=== PATIENT | male | born 1935 | race Caucasian/White ===

== ENCOUNTER 2020-09-08 13:03 | Emergency (ER) | payer MEDICARE ==
[~2020-09-08] VITALS: Ht 177.8 cm; Wt 79.1 kg
[~2020-09-08 13:03] MED LIST: AMOX-422 PO; ATOR20TA66 PO; CARV25TA PO; HYDR-4383 PO; LOSA50TA3 PO
[2020-09-08 13:14] VITALS: BP 188/99
[2020-09-08] MEDS ORDERED: LIDOcaine 2% 10ml TOPICAL JELLY (Urojet) TP ONE (14:20)
[2020-09-08 14:52] LABS: CLARITY,URINE SLIGHTLY CLOUDY (Clear); COLOR,URINE YELLOW (Yellow); GLUCOSE, URINE NEGATIVE (Neg); KETONES,URINE NEGATIVE (Neg); LEUKOCYTE ESTERASE ,URINE NEGATIVE (Neg); NITRITES, URINE NEGATIVE (Neg); OCCULT BLOOD,URINE LARGE (Neg); PROTEIN,URINE NEGATIVE (Neg); UROBILINOGEN,URINE 0.2 E.U/dL (0.2-1.0)
[2020-09-08 14:54] LABS: UA COLLECTION TYPE FOLEY CATH
[2020-09-08 15:03] LABS: BACTERIA,URINE FEW /HPF (Neg); RBC,URINE 50-100 /HPF (0-2); SQUAMOUS EPITHELIAL CELL,UR FEW /LPF (FEW); WBC,URINE 0-4 /HPF (0-4)
--- NOTE | 2020-09-08 15:26 | NUR ---
Pt states bladder relief after f/c insertion. Denies any pain at this time.
== END 2020-09-08 15:27 | disposition home or self-care (01) ==
LOC: ER 13:04
DX: R33.9 Retention of urine, unspecified (principal); I48.91 Unspecified atrial fibrillation; I10 Essential (primary) hypertension; Z98.890 Other specified postprocedural states; Z88.2 Allergy status to sulfonamides; Z79.899 Other long term (current) drug therapy
CPT/HCPCS: 51702; 81001; 99284

== ENCOUNTER 2021-10-04 22:27 | Inpatient (IN) | payer MEDICARE ==
[~2021-10-04] VITALS: Ht 177.8 cm; Wt 78.8 kg
[~2021-10-04 22:27] MED LIST changes: -AMOX-422 PO
[2021-10-04 23:06] LABS: BASOPHILS # (AUTO) 0.1 X10'3 (0-0.2); BASOPHILS % (AUTO) 1.3 % (0-1); EOSINOPHILS # (AUTO) 0.2 X10'3 (0-0.9); EOSINOPHILS % (AUTO) 2.4 % (0-6); HEMATOCRIT 44.8 % (42.0-52.0); HEMOGLOBIN 15.1 g/dl (14.0-17.9); LYMPHOCYTES # (AUTO) 2.1 X10'3 (1.1-4.8); LYMPHOCYTES % (AUTO) 23.2 % (21-51); MEAN CORPUSCULAR HEMOGLOBIN 28.7 PG (27.0-31.0); MEAN CORPUSCULAR HGB CONC 33.6 g/dL (33.0-36.5); MEAN CORPUSCULAR VOLUME 85.6 FL (78-98); MEAN PLATELET VOLUME 8.5 FL (7.4-10.4); MONOCYTES # (AUTO) 1.8 X10'3 (0-0.9); MONOCYTES % (AUTO) 20.3 % (2-12); NEUTROPHILS # (AUTO) 4.8 X10'3 (1.8-7.7); NEUTROPHILS % (AUTO) 52.8 % (42-75); PLATELET COUNT 406 X10'3 (140-440); RED BLOOD COUNT 5.24 X10'6 (4.70-6.10); RED CELL DISTRIBUTION WIDTH 15.7 % (11.5-14.5); WHITE BLOOD COUNT 9.1 X10'3 (4.5-11.0)
[2021-10-04] MEDS ORDERED: iohexol 350MG/ML 100ml bottle IV ONE (23:06)
[2021-10-04 23:18] LABS: ALANINE AMINOTRANSFERASE 51 U/L (12-78); ALBUMIN 2.5 G/DL (3.4-5.0); ALBUMIN/GLOBULIN RATIO 0.6 (1.1-1.5); ALKALINE PHOSPHATASE 57 IU/L (46-116); ANION GAP 13 (8-16); ASPARTATE AMINO TRANSFERASE 37 U/L (10-37); BILIRUBIN,TOTAL 0.9 MG/DL (0.1-1.0); BLOOD UREA NITROGEN 27 MG/DL (7-18); BUN/CREATININE RATIO 20.1 (5.4-32.0); CALCIUM 8.3 MG/DL (8.5-10.1); CHLORIDE 106 MMOL/L (99-107); CREATININE 1.34 MG/DL (0.60-1.10); GLUCOSE 139 MG/DL (70-104); POTASSIUM 4.3 MMOL/L (3.5-5.1); SODIUM 141 MMOL/L (135-145); TOTAL CARBON DIOXIDE 21.7 MMOL/L (24-32); TOTAL PROTEIN 6.5 G/DL (6.4-8.2); eGFR 51 ML/MIN
[2021-10-04] MEDS ORDERED: heparin 10,000 units/1 ML INJ IV ONE ×2 (23:45→23:55)
[2021-10-04] MEDS ORDERED: normal saline 1000ml 1,000 ML IV ONE (23:50)
[2021-10-04] MEDS ORDERED: CefTRIAXone/D5W-Rocephin 1gm 50 ML IV ONE (23:50)
[2021-10-05 00:09] LABS: PLATELET ESTIMATE NORMAL; TOTAL CELLS COUNTED 100
[2021-10-05] MEDS ORDERED: CARV25TA2 PO (01:01)
[2021-10-05] MEDS: heparin 25,000 UNIT/250ml bag 250 ML IV SCH ×3 (01:14→19:57)
[2021-10-05] MEDS ORDERED: ondansetron/PF 4mg/2ml inj IV PRN (01:30)
[2021-10-05] MEDS ORDERED: mag hydrox/Alum hydrox/simeth 30ml oral suspension PO PRN (01:30)
[2021-10-05] MEDS ORDERED: potassium Cl 20 mEq SR tablet PO PRN ×2 (01:30)
[2021-10-05] MEDS ORDERED: acetaminophen 325mg tablet PO PRN (01:30)
[2021-10-05] MEDS ORDERED: magnesium hydroxide 30ml (MOM) UD suspension PO PRN (01:30)
[2021-10-05] MEDS ORDERED: potassium Cl 40MEQ/1/2NS 520ml 520 ML IV PRN ×2 (01:30)
[2021-10-05] MEDS: normal saline 1000ml 1,000 ML IV SCH (02:08)
--- NOTE | 2021-10-05 03:44 | NUR ---
per dr juárez no repeat of covid. positive in august
--- NOTE | 2021-10-05 06:37 | NUR ---
patient recived on bed awake, heparin 1420units/hour, on 6L oxygebn nc, sating 100%, titrated down to 3L sating 98%, we will monitor,pt given a call light.
--- NOTE | 2021-10-05 07:30 | NUR ---
Problems reprioritized. Patient report given, questions answered & plan of care reviewed with Lavell MENCHACA from ED. discussed with nurse about pt not going to telli due to the heart failure and dx of bilateral emboli. called house sup, discussed the risk of pt being here without a telli. Lauren stated Dr bray feels he will be OK without it. and if anything happens pt will be transfer then. charge is aware.
[2021-10-05] MEDS: K and/or MAG REPLACEMENT MC SCH ×2 (08:00→20:00)
[2021-10-05 08:30] VITALS: BP 122/72
[2021-10-05] MEDS: carVEDilol 12.5mg tablet PO SCH ×2 (08:43→19:50)
[2021-10-05] MEDS: docusate sod 100mg capsule PO SCH ×2 (08:43→19:50)
[2021-10-05 08:52] LABS: BASOPHILS % (AUTO) 0.6 % (0-1); EOSINOPHILS # (AUTO) 0.2 X10'3 (0-0.9); EOSINOPHILS % (AUTO) 2.4 % (0-6); HEMATOCRIT 37.9 % (42.0-52.0); HEMOGLOBIN 12.8 g/dl (14.0-17.9); LYMPHOCYTES # (AUTO) 2.1 X10'3 (1.1-4.8); LYMPHOCYTES % (AUTO) 30.3 % (21-51); MEAN CORPUSCULAR HEMOGLOBIN 28.8 PG (27.0-31.0); MEAN CORPUSCULAR HGB CONC 33.8 g/dL (33.0-36.5); MEAN CORPUSCULAR VOLUME 85.3 FL (78-98); MEAN PLATELET VOLUME 7.9 FL (7.4-10.4); MONOCYTES # (AUTO) 1.7 X10'3 (0-0.9); NEUTROPHILS % (AUTO) 42.7 % (42-75); PLATELET COUNT 318 X10'3 (140-440); RED BLOOD COUNT 4.44 X10'6 (4.70-6.10); RED CELL DISTRIBUTION WIDTH 15.7 % (11.5-14.5); WHITE BLOOD COUNT 7.1 X10'3 (4.5-11.0)
[2021-10-05 11:00] VITALS: BP 110/77
--- NOTE | 2021-10-05 17:33 | NUR ---
pt was supposed to be drawn for APTT to check Heparin level at 1540, called Lab they stated they were short handed and were on their way. pt was Drawn after 1630. Still waiting for results. Addendum: 10/05/21 at 1736 by Opal Cerrato RN charge is aware.
[2021-10-05 18:00] VITALS: BP 146/69
--- NOTE | 2021-10-05 18:44 | NUR ---
Problems reprioritized. Patient report given, questions answered & plan of care reviewed with Radha MENCHACA.
--- NOTE | 2021-10-05 18:48 | NUR ---
Student documentation: I have reviewed and agree with all interventions, assessments performed and documented by Radha Jackson [facility] student.
[2021-10-06] VITALS: BP 129/70
[2021-10-06 05:23] LABS: BASOPHILS % (AUTO) 0.6 % (0-1); EOSINOPHILS # (AUTO) 0.2 X10'3 (0-0.9); EOSINOPHILS % (AUTO) 3.2 % (0-6); HEMOGLOBIN 12.8 g/dl (14.0-17.9); LYMPHOCYTES # (AUTO) 2.3 X10'3 (1.1-4.8); LYMPHOCYTES % (AUTO) 32.8 % (21-51); MEAN CORPUSCULAR HEMOGLOBIN 28.7 PG (27.0-31.0); MEAN CORPUSCULAR HGB CONC 33.6 g/dL (33.0-36.5); MEAN CORPUSCULAR VOLUME 85.3 FL (78-98); MEAN PLATELET VOLUME 8.4 FL (7.4-10.4); MONOCYTES # (AUTO) 1.5 X10'3 (0-0.9); MONOCYTES % (AUTO) 22.2 % (2-12); NEUTROPHILS # (AUTO) 2.9 X10'3 (1.8-7.7); NEUTROPHILS % (AUTO) 41.2 % (42-75); PLATELET COUNT 333 X10'3 (140-440); RED BLOOD COUNT 4.45 X10'6 (4.70-6.10); RED CELL DISTRIBUTION WIDTH 15.4 % (11.5-14.5)
[2021-10-06 05:37] LABS: ALANINE AMINOTRANSFERASE 42 U/L (12-78); ALBUMIN 2.1 G/DL (3.4-5.0); ALBUMIN/GLOBULIN RATIO 0.6 (1.1-1.5); ALKALINE PHOSPHATASE 43 IU/L (46-116); ANION GAP 7 (8-16); ASPARTATE AMINO TRANSFERASE 25 U/L (10-37); BILIRUBIN,TOTAL 0.7 MG/DL (0.1-1.0); BLOOD UREA NITROGEN 23 MG/DL (7-18); BUN/CREATININE RATIO 19.5 (5.4-32.0); CALCIUM 7.7 MG/DL (8.5-10.1); CHLORIDE 108 MMOL/L (99-107); CREATININE 1.18 MG/DL (0.60-1.10); GLUCOSE 89 MG/DL (70-104); POTASSIUM 4.3 MMOL/L (3.5-5.1); SODIUM 142 MMOL/L (135-145); TOTAL CARBON DIOXIDE 27.5 MMOL/L (24-32); TOTAL PROTEIN 5.7 G/DL (6.4-8.2); eGFR 59 ML/MIN
--- NOTE | 2021-10-06 06:30 | NUR ---
Problems reprioritized. Patient report given, questions answered & plan of care reviewed with Priscila MENCHACA. Addendum: 10/06/21 at 0630 by Radha Nguyen RN Amended: Links added.
[2021-10-06 07:30] VITALS: BP 128/83
[2021-10-06] MEDS: K and/or MAG REPLACEMENT MC SCH ×2 (08:00→20:00)
[2021-10-06] MEDS: carVEDilol 12.5mg tablet PO SCH ×2 (09:27→20:16)
[2021-10-06] MEDS: docusate sod 100mg capsule PO SCH ×2 (09:27→20:16)
[2021-10-06 12:00] VITALS: BP 150/82
--- NOTE | 2021-10-06 12:06 | NUR ---
PTT therapeutic, no changes
[2021-10-06] MEDS: heparin 25,000 UNIT/250ml bag 250 ML IV SCH (14:08)
[2021-10-06 18:00] VITALS: BP 145/76
[2021-10-06] MEDS: heparin 10,000 units/1 ML INJ IV PRN (18:23)
--- NOTE | 2021-10-06 18:52 | NUR ---
Report given to Radha MENCHACA, Heparin gtt changed per protocol. All questions answered.
[2021-10-07] VITALS: BP 145/80
[2021-10-07] MEDS: normal saline 1000ml 1,000 ML IV SCH (01:30)
--- NOTE | 2021-10-07 01:40 | NUR ---
HEP PTT 37. BOLUS DOSE AND ADJUSTMENTS PER PROTOCOL.
[2021-10-07] MEDS: heparin 10,000 units/1 ML INJ IV PRN (01:42)
[2021-10-07] MEDS: heparin 25,000 UNIT/250ml bag 250 ML IV SCH (05:12)
--- NOTE | 2021-10-07 06:41 | NUR ---
Patient in room JEREMY 348. I have received report from BERNARDA Garcia and had the opportunity to ask questions and assume patient care.
[2021-10-07 06:58] VITALS: BP 145/83
[2021-10-07] MEDS: docusate sod 100mg capsule PO SCH (07:24)
[2021-10-07] MEDS: carVEDilol 12.5mg tablet PO SCH (07:24)
[2021-10-07 07:52] LABS: BASOPHILS % (AUTO) 0.3 % (0-1); EOSINOPHILS # (AUTO) 0.1 X10'3 (0-0.9); EOSINOPHILS % (AUTO) 1.7 % (0-6); HEMATOCRIT 38.9 % (42.0-52.0); HEMOGLOBIN 13.5 g/dl (14.0-17.9); LYMPHOCYTES # (AUTO) 2.1 X10'3 (1.1-4.8); LYMPHOCYTES % (AUTO) 30.4 % (21-51); MEAN CORPUSCULAR HGB CONC 34.6 g/dL (33.0-36.5); MEAN CORPUSCULAR VOLUME 83.9 FL (78-98); MEAN PLATELET VOLUME 8.3 FL (7.4-10.4); MONOCYTES # (AUTO) 1.5 X10'3 (0-0.9); MONOCYTES % (AUTO) 21.2 % (2-12); NEUTROPHILS # (AUTO) 3.3 X10'3 (1.8-7.7); NEUTROPHILS % (AUTO) 46.4 % (42-75); PLATELET COUNT 357 X10'3 (140-440); RED BLOOD COUNT 4.63 X10'6 (4.70-6.10); RED CELL DISTRIBUTION WIDTH 15.4 % (11.5-14.5); WHITE BLOOD COUNT 7.1 X10'3 (4.5-11.0)
[2021-10-07 08:10] LABS: ALANINE AMINOTRANSFERASE 35 U/L (12-78); ALBUMIN 2.2 G/DL (3.4-5.0); ALBUMIN/GLOBULIN RATIO 0.6 (1.1-1.5); ALKALINE PHOSPHATASE 49 IU/L (46-116); ANION GAP 9 (8-16); ASPARTATE AMINO TRANSFERASE 20 U/L (10-37); BILIRUBIN,TOTAL 0.6 MG/DL (0.1-1.0); BLOOD UREA NITROGEN 16 MG/DL (7-18); BUN/CREATININE RATIO 14.5 (5.4-32.0); CHLORIDE 107 MMOL/L (99-107); POTASSIUM 3.9 MMOL/L (3.5-5.1); SODIUM 141 MMOL/L (135-145); TOTAL CARBON DIOXIDE 25.2 MMOL/L (24-32); TOTAL PROTEIN 5.8 G/DL (6.4-8.2); eGFR 64 ML/MIN
[2021-10-07 08:18] LABS: GLUCOSE 92 MG/DL (70-104)
[2021-10-07] MEDS: K and/or MAG REPLACEMENT MC SCH (08:30)
[2021-10-07] MEDS ORDERED: RIVA20TA PO ×3 (09:44→11:46)
[2021-10-07] MEDS ORDERED: RIVA15TA PO (09:44)
[2021-10-07] MEDS ORDERED: rivaroxaban 15mg tablet PO SCH (10:20)
--- NOTE | 2021-10-07 10:31 | NUR ---
Heparin gtt turned off.
--- NOTE | 2021-10-07 11:31 | NUR ---
PAGER ID: [phone] MESSAGE: [phone]- Carl Doyle called stating issues with insurance for Xarelto lately. Will not cover unless day supply for Xarelto. She is asking do you want to make changes or even switch to Eliquis instead? - [phone]
[2021-10-07 11:54] VITALS: BP 131/75
--- NOTE | 2021-10-07 12:03 | NUR ---
PAGER ID: [phone] MESSAGE: [phone]- [facility] states the 15mg being for only 21 days will not be able to be processed because it's not 90day supply but she agrees that it should not be for more than 21 days. Do you want to change to Eliquis instead of Xarelto? [phone]
--- NOTE | 2021-10-07 12:44 | NUR ---
Received call back from Dr. James regarding patient's issue with insurance and Xarelto. Dr. Puente asked that case management be paged and "might know more than we both do." Paged ABHISHEK Fleming and Bernadette came up to floor. Explained to Bernadette [facility] pharmacists call regarding Xarelto. Bernadette handed 3 coupons for Xarelto to be given to patient.
--- NOTE | 2021-10-07 13:31 | NUR ---
Called to adryan Concepcion pharmacist at [facility] that patient will be sent with coupon for Xarelto. Carlene explained that patient is medicare part D and due to it being "federally run 90% of the time it will not work." ABHISHEK Fleming aware as well. Explained to patient hold up on dc due to issues with Xarelto and [facility] with insurance. Patient ok for for prescription to be called elsewhere.
--- NOTE | 2021-10-07 13:49 | NUR ---
Prescription called to [facility] on [address]. Addendum: 10/07/21 at 1551 by Beverly Gloria RN [facility] stated if there was an issue with prescription they would call back. No call back from pharmacy. Patient instructed to go to [facility] for prescription.
--- NOTE | 2021-10-07 15:30 | NUR ---
Discussed with patient discharge information and new prescriptions. Patient verbalizes understanding. Patient aware [facility] [place]. [facility] number and address [facility] on discharge for patient. Patient waiting for spouse to arrive to transport home. IV's x2 DC'd. patient belongings in belongings bag with patient.
--- NOTE | 2021-10-07 15:51 | NUR ---
Patient alert and oriented with no apparent acute distress. Patient dc'd in wheelchair with all personal belongings escorted out in wheelchair by Amy rn progressive care unit. Patient spouse outside of lobby waiting for patient.
--- NOTE | 2021-10-07 15:53 | NUR ---
Pt alert and oriented, in no apparent distress. Pt given discharge education and information and verbalized understanding. 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. Pt dc'd in wheelchair with all personal belongings. Pt escorted out by Amy community arts officer to pt's outside of the lobby.
--- NOTE | 2021-10-07 15:56 | NUR ---
Student documentation: I have reviewed and agree with all interventions, assessments performed and documented by SN Jessica. Student Medication Administration: For this medication-pass time frame, all medication were reviewed, dispensed, administered and documented per hospital policy by BERNARDA Lopez. Addendum: 10/07/21 at 1557 by Beverly Gloria RN Student Medication Administration: For this medication-pass time frame, all medication were reviewed, dispensed, administered and documented per hospital policy by SN Jessica.
== END 2021-10-07 15:50 | disposition home or self-care (01) | DRG 176 ==
LOC: ER 22:27 → ED HOLD 10-05 01:31 → SUR 3N 10-05 08:10
PROVIDERS: ADMIT Internal Medicine; ATTEND Family Medicine
PROC: B32T1ZZ Computerized Tomography (CT Scan) of Left Pulmonary Artery using Low Osmolar Contrast (ICD-10-PCS; principal; 2021-10-04)
PROC: B3201ZZ Computerized Tomography (CT Scan) of Thoracic Aorta using Low Osmolar Contrast (ICD-10-PCS; 2021-10-04)
PROC: B32S1ZZ Computerized Tomography (CT Scan) of Right Pulmonary Artery using Low Osmolar Contrast (ICD-10-PCS; 2021-10-04)
DX: I26.99 Other pulmonary embolism without acute cor pulmonale (principal); I12.9 Hypertensive chronic kidney disease with stage 1 through stage 4 chronic kidney disease, or unspecified chronic kidney disease; N18.9 Chronic kidney disease, unspecified; E78.5 Hyperlipidemia, unspecified; I48.91 Unspecified atrial fibrillation; N40.0 Benign prostatic hyperplasia without lower urinary tract symptoms; Z86.16 Personal history of COVID-19; Z88.2 Allergy status to sulfonamides; Z79.899 Other long term (current) drug therapy
CPT/HCPCS: 36415; 71045; 71275; 80053; 83605; 83880; 84484; 85007; 85025; 85610; 85730; 87040; 93005; 97161; 97530; 99291; G0378; J0696; J1644; J7030; Q9967

== ENCOUNTER 2023-11-19 10:24 | Emergency (ER) | payer MEDICARE ==
[~2023-11-19] VITALS: Ht 177.8 cm; Wt 78.4 kg
[~2023-11-19 10:24] MED LIST changes: -HYDR-4383 PO; -LOSA50TA3 PO; +RIVA15TA PO; +RIVA20TA PO
[2023-11-19 10:44] VITALS: TEMP 97.8
[2023-11-19 11:10] LABS: BASOPHILS # (AUTO) 0.1 X10'3 (0-0.2); BASOPHILS % (AUTO) 0.6 % (0-1); EOSINOPHILS # (AUTO) 0.4 X10'3 (0-0.9); EOSINOPHILS % (AUTO) 3.8 % (0-6); HEMATOCRIT 47.9 % (42.0-52.0); LYMPHOCYTES % (AUTO) 19.2 % (21-51); MEAN CORPUSCULAR HGB CONC 33.3 g/dL (33.0-36.5); MEAN CORPUSCULAR VOLUME 90.1 FL (78-98); MEAN PLATELET VOLUME 9.8 FL (7.4-10.4); MONOCYTES # (AUTO) 1.1 X10'3 (0-0.9); MONOCYTES % (AUTO) 10.8 % (2-12); NEUTROPHILS # (AUTO) 6.9 X10'3 (1.8-7.7); NEUTROPHILS % (AUTO) 65.6 % (42-75); PLATELET COUNT 152 X10'3 (140-440); RED BLOOD COUNT 5.32 X10'6 (4.70-6.10); WHITE BLOOD COUNT 10.6 X10'3 (4.5-11.0)
[2023-11-19 11:28] LABS: ALANINE AMINOTRANSFERASE 51 U/L (12-78); ALBUMIN 3.7 G/DL (3.4-5.0); ALBUMIN/GLOBULIN RATIO 1.2 (1.1-1.5); ALKALINE PHOSPHATASE 49 IU/L (46-116); ANION GAP 6 (8-16); ASPARTATE AMINO TRANSFERASE 32 U/L (10-37); BILIRUBIN,TOTAL 1.1 MG/DL (0.1-1.0); BLOOD UREA NITROGEN 18 MG/DL (7-18); BUN/CREATININE RATIO 13.1 (10.0-20.0); CALCIUM 8.1 MG/DL (8.5-10.1); CHLORIDE 105 MMOL/L (99-107); CREATININE 1.37 MG/DL (0.60-1.10); GLUCOSE 66 MG/DL (70-104); POTASSIUM 4.2 MMOL/L (3.5-5.1); SODIUM 141 MMOL/L (135-145); TOTAL PROTEIN 6.7 G/DL (6.4-8.2); eCRCL 40 ML/MIN; eGFR 49 ML/MIN
[2023-11-19 11:35] LABS: PRO BRAIN NATRIURETIC PEPTIDE 3346 PG/ML (0-450)
[2023-11-19] MEDS ORDERED: iohexol 350MG/ML 100ml bottle IV ONE (16:36)
[2023-11-19] MEDS ORDERED: AMOX-117 PO (17:35)
[2023-11-19] MEDS ORDERED: AZIT500T9 PO (17:35)
[2023-11-19 17:36] VITALS: BP 201/112; PULSE 72; RESP 16; O2SAT 95
== END 2023-11-19 18:51 | disposition home or self-care (01) ==
LOC: ER 10:25
DX: R06.09 Other forms of dyspnea (principal); I48.91 Unspecified atrial fibrillation; I10 Essential (primary) hypertension; Z98.890 Other specified postprocedural states; Z88.2 Allergy status to sulfonamides; Z79.899 Other long term (current) drug therapy; Z79.2 Long term (current) use of antibiotics; Z86.16 Personal history of COVID-19
CPT/HCPCS: 36415; 71045; 71275; 80053; 83880; 84484; 85025; 85379; 93005; 99285; J3490; Q9967

== ENCOUNTER 2024-01-27 06:08 | Day surgery (SDC) | payer MEDICARE ==
[2024-01-26 12:26] LABS: BASOPHILS # (AUTO) 0.1 X10'3 (0-0.2); BASOPHILS % (AUTO) 0.8 % (0-1); EOSINOPHILS # (AUTO) 0.2 X10'3 (0-0.9); EOSINOPHILS % (AUTO) 1.9 % (0-6); HEMATOCRIT 46.8 % (42.0-52.0); HEMOGLOBIN 15.5 g/dl (14.0-17.9); LYMPHOCYTES # (AUTO) 1.7 X10'3 (1.1-4.8); LYMPHOCYTES % (AUTO) 16.1 % (21-51); MEAN CORPUSCULAR HEMOGLOBIN 29.7 PG (27.0-31.0); MEAN CORPUSCULAR HGB CONC 33.2 g/dL (33.0-36.5); MEAN CORPUSCULAR VOLUME 89.6 FL (78-98); MEAN PLATELET VOLUME 9.7 FL (7.4-10.4); MONOCYTES % (AUTO) 10.2 % (2-12); NEUTROPHILS # (AUTO) 7.3 X10'3 (1.8-7.7); PLATELET COUNT 141 X10'3 (140-440); RED BLOOD COUNT 5.23 X10'6 (4.70-6.10); RED CELL DISTRIBUTION WIDTH 16.5 % (11.5-14.5); WHITE BLOOD COUNT 10.3 X10'3 (4.5-11.0)
[2024-01-26 12:32] LABS: APTT 27 SECONDS (22-32); INR 1.1 INR; PROTHROMBIN TIME 11.9 SECONDS (9.0-12.0)
[2024-01-26 12:38] LABS: ALBUMIN 3.6 G/DL (3.4-5.0); ANION GAP 11 (8-16); BLOOD UREA NITROGEN 26 MG/DL (7-18); BUN/CREATININE RATIO 15.8 (10.0-20.0); CALCIUM 8.7 MG/DL (8.5-10.1); CHLORIDE 108 MMOL/L (99-107); CREATININE 1.65 MG/DL (0.60-1.10); GLUCOSE 79 MG/DL (70-104); POTASSIUM 3.7 MMOL/L (3.5-5.1); SODIUM 148 MMOL/L (135-145); TOTAL CARBON DIOXIDE 29.1 MMOL/L (24-32); eGFR 40 ML/MIN
[2024-01-27] VITALS (10 sets, daily range): BP systolic 123–166; BP diastolic 81–99; PULSE 70–71; RESP 12–15; O2SAT 96–97
[~2024-01-27] VITALS: Ht 175.3 cm; Wt 76.9 kg
[~2024-01-27 06:08] MED LIST changes: +AMI200T PO; +APIX5TAB3 PO; +ASPI-1071 PO; -CARV25TA PO; +CARV6.253 PO; +CEFD300C3 PO; +FURO-150 PO; +LOSA100T58 PO; +NITR0.4T51 SL; +NOR5T PO; -RIVA15TA PO; -RIVA20TA PO
[2024-01-27] MEDS ORDERED: cefazolin 2gm/D5W 100mL 100 ML IV ONE (06:41)
[2024-01-27] MEDS ORDERED: FURO20TA4 PO (06:51)
[2024-01-27] MEDS ORDERED: APIX5TAB3 PO (06:51)
[2024-01-27] MEDS ORDERED: NITR0.4T51 SL (06:53)
[2024-01-27] MEDS ORDERED: ASPI81TA52 PO (06:53)
[2024-01-27] MEDS ORDERED: AMI200T PO (06:53)
[2024-01-27] MEDS ORDERED: DORZ10DR26 EACHEYE (06:55)
[2024-01-27] MEDS ORDERED: LIDOcaine 1% W/epiNEPHrine 1:100,000 20ml vial ONE (07:27)
[2024-01-27] MEDS ORDERED: midazolam 1 mg/ML 2ml injection ONE (07:27)
[2024-01-27] MEDS ORDERED: fentaNYL/PF 50MCG/1 ML 2ML syringe ONE (07:27)
[2024-01-27] MEDS ORDERED: iohexol 350 MG/ML 50ML vial IV ONE (07:27)
[2024-01-27] MEDS ORDERED: ceFAZolin 1000mg inj ONE (07:27)
[2024-01-27] MEDS ORDERED: HYDROcodone/acetaminophen 10/325mg tab PO PRN (10:00)
[2024-01-27] MEDS ORDERED: HYDROcodone/acetaminophen 5mg/325mg tablet PO PRN (10:00)
[2024-01-27] MEDS: vancomycin/NS 1 GM ADD-VANTAGE 250 ML X 1 DOSE IV ONE (10:31)
== END 2024-01-27 14:30 | disposition home or self-care (01) ==
LOC: SSTAY O 06:08
PROVIDERS: ATTEND Internal Medicine Cardiovascular Disease
DX: Z45.010 Encounter for checking and testing of cardiac pacemaker pulse generator [battery] (principal); I49.5 Sick sinus syndrome; I11.0 Hypertensive heart disease with heart failure; I50.32 Chronic diastolic (congestive) heart failure; I25.10 Atherosclerotic heart disease of native coronary artery without angina pectoris; E78.5 Hyperlipidemia, unspecified; I48.0 Paroxysmal atrial fibrillation; I42.0 Dilated cardiomyopathy; N40.0 Benign prostatic hyperplasia without lower urinary tract symptoms; Z79.01 Long term (current) use of anticoagulants; Z79.82 Long term (current) use of aspirin; Z79.899 Other long term (current) drug therapy; Z90.49 Acquired absence of other specified parts of digestive tract; Z98.890 Other specified postprocedural states; Z80.9 Family history of malignant neoplasm, unspecified
CPT/HCPCS: 33208; 36415; 71046; 80048; 85025; 85610; 85730; 93005; 99152; 99153; C1785; C1898; J0690; J2250; J3010; J3370; J3490; J7030; Q9967; A4565

== ENCOUNTER 2024-02-05 06:03 | Day surgery (SDC) | payer MEDICARE ==
[~2024-02-05] VITALS: Ht 10 cm; Wt 77.5 kg
[2024-02-05] VITALS (9 sets, daily range): BP systolic 135–162; BP diastolic 84–106; PULSE 71–83; RESP 10–20; TEMP 97.9; O2SAT 93–98
[~2024-02-05 06:03] MED LIST changes: -ASPI-1071 PO; +ASPI81TA52 PO; -CARV6.253 PO; -CEFD300C3 PO; +DORZ10DR26 EACHEYE; -FURO-150 PO; +FURO20TA4 PO; -NOR5T PO
[2024-02-05] MEDS ORDERED: amiodarone 150mg/dext, iso-os 100 ML IV ONE (06:25)
[2024-02-05] MEDS ORDERED: normal saline 1000ml 1,000 ML IV SCH (06:25)
[2024-02-05] MEDS ORDERED: atropine 0.1mg/ml 10ml syringe IV ONE (06:25)
[2024-02-05] MEDS ORDERED: LORazepam 0.5 MG tablet PO ONE (06:25)
[2024-02-05] MEDS ORDERED: CARV6.2555 PO (06:34)
[2024-02-05] MEDS ORDERED: CARV25TA2 PO (06:34)
[2024-02-05 07:08] LABS: BASOPHILS # (AUTO) 0.1 X10'3 (0-0.2); BASOPHILS % (AUTO) 0.8 % (0-1); EOSINOPHILS # (AUTO) 0.4 X10'3 (0-0.9); HEMATOCRIT 42.1 % (42.0-52.0); HEMOGLOBIN 13.9 g/dl (14.0-17.9); LYMPHOCYTES # (AUTO) 1.5 X10'3 (1.1-4.8); LYMPHOCYTES % (AUTO) 12.9 % (21-51); MEAN CORPUSCULAR HEMOGLOBIN 29.6 PG (27.0-31.0); MEAN CORPUSCULAR VOLUME 89.6 FL (78-98); MEAN PLATELET VOLUME 8.9 FL (7.4-10.4); MONOCYTES # (AUTO) 1.1 X10'3 (0-0.9); MONOCYTES % (AUTO) 10.1 % (2-12); NEUTROPHILS # (AUTO) 8.1 X10'3 (1.8-7.7); NEUTROPHILS % (AUTO) 72.2 % (42-75); PLATELET COUNT 140 X10'3 (140-440); RED CELL DISTRIBUTION WIDTH 16.3 % (11.5-14.5); WHITE BLOOD COUNT 11.3 X10'3 (4.5-11.0)
[2024-02-05 07:15] LABS: ALBUMIN 3.3 G/DL (3.4-5.0); ANION GAP 7 (8-16); BLOOD UREA NITROGEN 35 MG/DL (7-18); BUN/CREATININE RATIO 21.6 (10.0-20.0); CALCIUM 8.1 MG/DL (8.5-10.1); CHLORIDE 105 MMOL/L (99-107); CREATININE 1.62 MG/DL (0.60-1.10); GLUCOSE 98 MG/DL (70-104); POTASSIUM 3.8 MMOL/L (3.5-5.1); SODIUM 142 MMOL/L (135-145); TOTAL CARBON DIOXIDE 29.9 MMOL/L (24-32); eGFR 41 ML/MIN
[2024-02-05] MEDS: diphenhydrAMINE 25mg capsule PO ONE (07:27)
[2024-02-05] MEDS: morphine 10mg/ml inj. IV ONE (08:39)
[2024-02-05] MEDS: MIDAZolam 1mg/ml 10ml vial IV ONE (08:39)
== END 2024-02-05 09:50 | disposition home or self-care (01) ==
LOC: SSTAY O 06:03
PROVIDERS: ATTEND Internal Medicine Cardiovascular Disease
DX: I48.0 Paroxysmal atrial fibrillation (principal); E78.5 Hyperlipidemia, unspecified; I42.8 Other cardiomyopathies; I11.0 Hypertensive heart disease with heart failure; I50.32 Chronic diastolic (congestive) heart failure; I25.10 Atherosclerotic heart disease of native coronary artery without angina pectoris; I44.7 Left bundle-branch block, unspecified; I49.5 Sick sinus syndrome; Z98.890 Other specified postprocedural states; Z79.82 Long term (current) use of aspirin; Z79.899 Other long term (current) drug therapy; Z87.891 Personal history of nicotine dependence; Z95.0 Presence of cardiac pacemaker; Z79.01 Long term (current) use of anticoagulants
CPT/HCPCS: 36415; 80048; 85025; 92960; 93005; J2250; J2274; Q0163

== ENCOUNTER 2025-05-14 03:13 | Emergency (ER) | payer MEDICARE ==
[~2025-05-14] VITALS: Ht 175.3 cm; Wt 75.8 kg
[~2025-05-14 03:13] MED LIST changes: +CARV25TA2 PO
--- NOTE | 2025-05-14 03:30 | ELECTROCARDIOGRAPH REPORT ---
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
--- NOTE | 2025-05-14 03:59 | Physician Documentation ---
History of Present Illness ~ Chief Complaint: Shortness of Breath Stated Complaint: SOB Time Seen by MD: 03:24 Primary Medical Doctor: CHOLO Source: patient, family Mode of Arrival: POV Exam Limitations: no limitations HPI Patient with a history of pacemaker in with cough x1 month. He does have shortness of breath but no chest pain. Remote history of smoking. States he is with other people on vacation and they all got sick as well but they got better and he did not. Medication Reconciliation Allergies: Coded Allergies: Sulfa (Sulfonamide Antibiotics) (Verified Allergy, Unknown, 12/07/23) Scheduled Amiodarone Hcl (Cordarone), 1 TAB PO DAILY, (Reported) Apixaban (Eliquis), 1 TAB PO Q12H, (Reported) Aspirin (Aspirin EC), 1 TAB PO DAILY, (Reported) Atorvastatin Calcium (Atorvastatin Calcium), 20 MG PO DAILY, (Reported) Azithromycin (Zithromax), 1 TAB PO DAILY Carvedilol (Carvedilol), 0.5 TAB PO BID, (Reported) Dorzolamide HCl (Dorzolamide HCl), 1 DROP EACHEYE TID, (Reported) Furosemide (Furosemide), 1 TAB PO DAILY, (Reported) Losartan Potassium (Losartan Potassium), 1 TAB PO DAILY, (Reported) Scheduled PRN Nitroglycerin SL* (Nitrostat SL*), 1 TAB SL Q5MIN PRN for Chest pain Q5min PRNx3-call MD, (Reported) Past Medical History Past Medical History: *CARDIOVASCULAR*, Atrial Fibrillation, Hypertension, Hernia, Spine Compression Past Surgical History: other Other Past Surgical History: Kyphoplasty, hernia repair Drug Use: none Lives with: Family Lives In: Home Occupation: retired Review of Systems All Other Systems at this time: Reviewed and Negative Physical Exam Vital Signs: Temperature: 98.4, Heart Rate: 76, Respiratory Rate: 18, BP: 162/86, Pulse Oximetry: 96, Weight: 75.800 Oxygen Flow Rate: 0 Physical Exam General: Alert and oriented x4, well-appearing, well-nourished, no acute distre ss HEENT: Normocephalic, atraumatic, no visible or palpable masses or depression, extraocular movements intact, PERRLA, no scleral icterus, neck is supple and nontender, mucous membranes moist Heart: Regular rate and rhythm, no murmurs, rubs or gallops Lungs: Rhonchorous, normal work of breathing Abdomen: Soft, nontender, no palpable masses, Extremities: Full range of motion, no acute deformity, no cyanosis or edema Musculoskeletal: Normal gait, normal tone Neurologic: Cranial nerves 2-12 are intact, Psychiatric: Alert and oriented x4, judgment and insight normal, normal mood and affect Skin: Good turgor, no rashes Progress Results/Orders Results/Orders Orders - KEIKO MAURICE MD Chest,Two Views (05/14/25 03:23) Cbc/Diff (05/14/25 03:23) Culture Blood (05/14/25 03:23) Saline Lock (05/14/25 03:23) Oxygen (05/14/25 03:23) Lacticsepsis (05/14/25 03:23) Completed Orders - KEIKO MAURICE MD Chest,Two Views (05/14/25 03:23) BMP (05/14/25 03:23) PBNP (05/14/25 03:23) Electrocardiogram (05/14/25 ) Troponin (Single) (05/14/25 03:35) Azithromycin Tablet (Zithromax Tablet) (05/14/25 04:15) Medications Received in ER Medications (Trade) Dose Ordered Sig/Yasemin Route PRN Reason Start Time Stop Time Status Last Admin Dose Admin (Zithromax tablet) 500 mg ONCE ONCE PO 05/14/25 04:15 05/14/25 04:18 DC 05/14/25 04:39 500 MG Vital Signs 05/14/25 05/14/25 03:16 03:33 Temp 98.4 Pulse 76 Resp 16 18 B/P (MAP) 162/86 Pulse Ox 96 O2 Flow Rate 0 Laboratory Tests Test 05/14/25 03:37 05/14/25 04:10 CBC Comment Sodium Level 144 Potassium Level 4.0 Chloride Level 104 Carbon Dioxide Level 30.4 Anion Gap 10 Blood Urea Nitrogen 21 H Creatinine 1.61 H Estimated GFR/1.73 m2 41 BUN/Creatinine Ratio 13.0 Glucose Level 100 Calcium Level 8.8 Troponin I High Sensitivity 62 Pro-B-Type Natriuretic Peptide 3552 H Albumin 3.3 L Chemistry Comments Medical Decision Making Additional Infomation Differential includes but isn't limited to: Pneumonia, bronchitis, URI, CHF Departure Disposition: HOME / SELF CARE / HOMELESS Impression: Primary Impression: Pneumonia Qualified Codes: J18.9 - Pneumonia, unspecified organism Additional Impression Text EKG: Paced rhythm, rate of 76, no ST changes, QTC 516 Patient in with cough for 1 month. Chest x-ray shows left lower lobe infiltrate. EKG and chest x-ray independently reviewed by me. Chest x-ray confirmed by Radiology. Starting patient on a Z-Ilia for pneumonia. Troponin is slightly bumped at 60 but patient has no chest pain and creatinine is 1.6. Possibly [place] [address] with normal vital signs. No sepsis. Patient is well-appearing and will be discharged home. He is to follow up with his PCP in the next 7-10 days or return here if new or worsening symptoms. Condition: Stable Discharge Instructions: Community-Acquired Pneumonia, Adult Additional Instructions: Follow-up with your doctor for a recheck in 7-10 days. Return here if new or worsening symptoms prior to follow-up. Referrals: NO PRIMARY CARE PROVIDER (PCP) Prescriptions Azithromycin (Zithromax) 250 Mg Tablet 1 TAB PO DAILY for 4 Days, #4 TAB z-pack per packaging insert Prov: KEIKO MAURICE MD 05/14/25 Education Educated: Patient, Family Educated regarding: diagnosis, treatment, prognosis, need for follow up Signature Scribe Signature: No scribe Attestation: No scribe KEIKO MAURICE MD May 14, 2025 03:59
--- NOTE | 2025-05-14 04:15 | RADIOLOGY REPORT ---
EXAM: DI CHEST,TWO VIEWS HISTORY: sob COMPARISON: Chest x-ray dated 01/27/[address] dated 12/08/2023 were not made available on the PACS system for viewing. TECHNIQUE: Frontal and lateral views of the chest were performed. FINDINGS: There is mild left basilar infiltrate and probable small pleural effusion. The right lung is clear. N o pneumothorax or pulmonary edema. The heart is not enlarged. There is a left chest pacemaker. No fr actures are identified about the bony thorax. IMPRESSION: 1. Left basilar opacities may be due to pneumonia and small pleural effusion. This appearance may al so be seen with chronic scarring. Recommend comparison with previous chest imaging which was not mad e available PACS system for my viewing at the time of this reading. 2. The right lung is clear.
[2025-05-14 04:33] LABS: ANION GAP 10 (8-16); BLOOD UREA NITROGEN 21 MG/DL (7-18); CHLORIDE 104 MMOL/L (99-107); CREATININE 1.61 MG/DL (0.60-1.10); GLUCOSE 100 MG/DL (70-104); SODIUM 144 MMOL/L (135-145); TOTAL CARBON DIOXIDE 30.4 MMOL/L (24-32); eCRCL 32 ML/MIN; eGFR 41 ML/MIN
[2025-05-14 04:34] LABS: ALBUMIN 3.3 G/DL (3.4-5.0); CALCIUM 8.8 MG/DL (8.5-10.1); PRO BRAIN NATRIURETIC PEPTIDE 3552 PG/ML (0-450)
[2025-05-14] MEDS: azithromycin 250mg tablet PO ONE (04:39)
[2025-05-14] MEDS ORDERED: AZIT-164 PO (04:41)
[2025-05-14 04:49] VITALS: BP 153/81; PULSE 70; RESP 12; TEMP 98.1; O2SAT 99
[2025-05-14 05:25] LABS: BASOPHILS # (AUTO) 0.1 X10'3 (0-0.2); BASOPHILS % (AUTO) 0.7 % (0-1); EOSINOPHILS # (AUTO) 0.6 X10'3 (0-0.9); EOSINOPHILS % (AUTO) 3.6 % (0-6); HEMATOCRIT 47.5 % (42.0-52.0); HEMOGLOBIN 15.8 g/dl (14.0-17.9); LYMPHOCYTES # (AUTO) 2.3 X10'3 (1.1-4.8); LYMPHOCYTES % (AUTO) 14.6 % (21-51); MEAN CORPUSCULAR HEMOGLOBIN 28.2 PG (27.0-31.0); MEAN CORPUSCULAR HGB CONC 33.3 g/dL (33.0-36.5); MEAN CORPUSCULAR VOLUME 84.6 FL (78-98); MEAN PLATELET VOLUME 9.2 FL (7.4-10.4); MONOCYTES # (AUTO) 1.8 X10'3 (0-0.9); MONOCYTES % (AUTO) 11.1 % (2-12); NEUTROPHILS # (AUTO) 11.2 X10'3 (1.8-7.7); PLATELET COUNT 168 X10'3 (140-440); RED BLOOD COUNT 5.61 X10'6 (4.70-6.10); RED CELL DISTRIBUTION WIDTH 15.2 % (11.5-14.5); WHITE BLOOD COUNT 16.1 X10'3 (4.5-11.0)
== END 2025-05-14 04:56 | disposition home or self-care (01) ==
LOC: ER 03:14
DX: J18.9 Pneumonia, unspecified organism (principal); I10 Essential (primary) hypertension; I48.91 Unspecified atrial fibrillation; Z88.2 Allergy status to sulfonamides; Z95.0 Presence of cardiac pacemaker; Z98.890 Other specified postprocedural states
CPT/HCPCS: 36415; 71046; 80048; 83605; 83880; 84484; 85025; 87040; 93005; 99285